=== PATIENT | female | born 1960 | race Caucasian/White ===

== ENCOUNTER 2025-06-15 12:39 | Outpatient (CLI) | payer MEDICARE ==
--- NOTE | 2025-06-15 13:21 | RADIOLOGY REPORT ---
CLINICAL HISTORY: INTRACRANIAL MASS TECHNIQUE: Helical scanning was performed of the head from the skull base to the vertex. Multiplanar reconstructions were performed. This exam was performed according to our departmental dose optimization program. Up-to-date CT equipment and radiation dose reduction techniques are utilized as appropriate. CTDI 49 DLP 798 COMPARISON: None FINDINGS: There is no evidence for acute intracranial hemorrhage, acute ischemic changes, or extra-axial fluid collection. There is no hydrocephalus or midline shift. There is no effacement of the cerebral sulci and basal subarachnoid cisterns. The brantley-white matter differentiation is well maintained. There is a 1.6 cm left medial frontal lobe hyperdense mass, favor extra-axial. No adjacent vasogenic edema. The imaged paranasal sinuses demonstrate moderate left maxillary sinus mucosal thickening, [id number] bilateral ethmoid air cell mucosal thickening, and mild right maxillary and left sphenoid sinus mucosal thickening with secretions. IMPRESSION: 1.6 cm left medial frontal lobe hyperdense mass, favor extra-axial. No distal metastatic edema. Statistically, this most compatible with a meningioma. Paranasal sinus disease as above. Please correlate for sinusitis.
== END 2025-06-15 23:59 | disposition home or self-care (01) ==
LOC: RAD 12:39
PROVIDERS: ATTEND Student in an Organized Health Care Education/Training Program
DX: J32.0 Chronic maxillary sinusitis (principal); R90.0 Intracranial space-occupying lesion found on diagnostic imaging of central nervous system; J32.3 Chronic sphenoidal sinusitis; J32.2 Chronic ethmoidal sinusitis
CPT/HCPCS: 70450